=== PATIENT | female | born 1975 | race Caucasian/White ===

== ENCOUNTER → 2021-02-28 | Outpatient (CLI) | payer OTHER ==
[~2021-02-28] MED LIST: DOCUSATE SODIU100 MG PO; EMGALITY; MAXALT10 MG PO; NAPROXEN250 MG PO; OMEPRAZOLE40 MG PO; ROXICODONE TAB 55 MG PO; TOPAMAX100 MG PO; VIIBRYD40 MG PO; ZANAFLEX 4 MG TA4 MG PO; ZYRTEC10 M3 PO
[2021-02-28 11:17] LABS: HEMOGLOBIN 13.6 gm/dl (12.3-15.3); RED BLOOD COUNT 4.64 M/UL (4.00-5.10); WHITE BLOOD COUNT 7.9 K/UL (4.5-11.0)
== END ==
LOC: OPSV2 10:00
PROVIDERS: Obstetrics & Gynecology
DX: Z01.812 Encounter for preprocedural laboratory examination (principal); R10.2 Pelvic and perineal pain
CPT/HCPCS: 36415; 81001; 85025

== ENCOUNTER 2021-03-04 05:09 | Day surgery (SDC) | payer OTHER ==
[~2021-03-04 05:09] MED LIST changes: -DOCUSATE SODIU100 MG PO; -NAPROXEN250 MG PO; -ROXICODONE TAB 55 MG PO
[2021-03-04] MEDS ORDERED: DOCUSATE SODIU100 MG PO (11:01)
[2021-03-04] MEDS ORDERED: ROXICODONE TAB 55 MG PO (11:01)
[2021-03-04] MEDS ORDERED: NAPROXEN250 MG PO (11:01)
[2021-03-04 14:10] LABS: HEMOGLOBIN 12.9 gm/dl (12.3-15.3)
== END 2021-03-04 15:46 | disposition home or self-care (01) ==
LOC: OR 05:09 → MED SURG 4 13:42 → OR 15:46
PROVIDERS: Obstetrics & Gynecology
DX: R10.2 Pelvic and perineal pain (principal); K21.9 Gastro-esophageal reflux disease without esophagitis; F41.9 Anxiety disorder, unspecified; F32.A Depression, unspecified; G89.29 Other chronic pain; M54.2 Cervicalgia; Z20.822 Contact with and (suspected) exposure to COVID-19; Z90.49 Acquired absence of other specified parts of digestive tract; Z79.899 Other long term (current) drug therapy; Z88.1 Allergy status to other antibiotic agents; Z98.84 Bariatric surgery status; Z82.49 Family history of ischemic heart disease and other diseases of the circulatory system; Z80.9 Family history of malignant neoplasm, unspecified
CPT/HCPCS: 36415; 84703; 85014; 85018; 93005; J0690; J1100; J1885; J2001; J2250; J2405; J2704; J2710; J2795; J3010; J7120; U0002